=== PATIENT | male | born 1975 | race Hispanic/Latino ===

== ENCOUNTER 2024-06-23 07:29 | Emergency (ER) | payer OTHER ==
[~2024-06-23] VITALS: Ht 167.6 cm; Wt 78.0 kg
[2024-06-23 07:40] VITALS: PULSE 72; RESP 17; TEMP 97; O2SAT 100
[2024-06-23 08:09] LABS: BASOPHILS % 0.4 % (0.0-1.0); EOSINOPHILS # (AUTO) 0.1 (0.0-0.4); EOSINOPHILS % 0.9 % (0.0-6.0); HEMATOCRIT 47.3 % (38.2-49.6); LYMPHOCYTES # (AUTO) 2.5 (1.0-3.2); LYMPHOCYTES % 46.4 % (18.0-39.1); MEAN CORPUSCULAR HEMOGLOBIN 29.9 pg (28-32); MEAN CORPUSCULAR HGB CONC 33.8 g/dL (31-35); MEAN CORPUSCULAR VOLUME 88.4 fL (81-99); MONOCYTES # (AUTO) 0.4 (0.2-0.8); MONOCYTES % 7.1 % (4.4-11.3); NEUTROPHILS # (AUTO) 2.5 (2.1-6.9); PLATELET COUNT 188 x10e3/uL (140-360); RED BLOOD COUNT 5.35 x10e6/uL (4.3-5.7); RED CELL DISTRIBUTION WIDTH 12.9 % (11.7-14.4); WHITE BLOOD COUNT 5.48 x10e3/uL (4.8-10.8)
[2024-06-23] MEDS: SODIUM CHLORIDE 0.9% 1000ML 1,000 ML IV STA (08:29)
[2024-06-23] MEDS: ONDANSETRON HCL INJ 2MG/ML 2ML 2 MG/ML VIAL IV STA (08:29)
[2024-06-23] MEDS: KETOROLAC TROMETHAMINE 30 MG/ML VIAL IV STA (08:29)
[2024-06-23 08:38] LABS: INR 0.92; PROTHROMBIN TIME 12.8 seconds (11.9-14.5)
[2024-06-23 08:51] LABS: ALANINE AMINOTRANSFERASE 27 IU/L (0-55); ALBUMIN/GLOBULIN RATIO 1.1 (0.8-2.0); ALKALINE PHOSPHATASE 90 IU/L (40-150); ANION GAP 14.1 mmol/L (8-16); BILIRUBIN,TOTAL 0.5 mg/dL (0.2-1.2); BLOOD UREA NITROGEN 17 mg/dL (7-26); BUN/CREATININE RATIO 20 (6-25); CALCIUM 8.7 mg/dL (8.4-10.2); CARBON DIOXIDE 18 mmol/L (22-29); CHLORIDE 109 mmol/L (98-107); CREATINE KINASE 229 IU/L (30-200); CREATININE, SERUM 0.86 mg/dL (0.72-1.25); EST GLOMERULAR FILTRATION RATE 105 ML/MIN (>=60); GLUCOSE 104 mg/dL (74-118); MAGNESIUM 2.2 MG/DL (1.3-2.1); POTASSIUM 4.1 mmol/L (3.5-5.1); SODIUM 137 mmol/L (136-145); TOTAL PROTEIN 7.7 g/dL (6.5-8.1)
[2024-06-23 08:57] LABS: CLARITY,URINE CLEAR (CLEAR); COLOR,URINE YELLOW (YELLOW); GLUCOSE, URINE NEGATIVE (NEGATIVE); LEUKOCYTE ESTERASE ,URINE NEGATIVE (NEGATIVE); NITRITE,URINE NEGATIVE (NEGATIVE); PH,URINE 5.5 (5 - 7); PROTEIN,URINE DIPSTICK NEGATIVE (NEGATIVE)
[2024-06-23 08:58] LABS: BILIRUBIN,URINE NEGATIVE (NEGATIVE); KETONES,URINE NEGATIVE (NEGATIVE); URINE UROBILINOGEN 0.2 mg/dL (0.2 - 1)
[2024-06-23 09:20] LABS: BACTERIA,URINE FEW /HPF; EPITHELIAL CELLS,URINE FEW /LPF; RBC,URINE 0-5 /HPF (0-5)
[2024-06-23 09:29] LABS: TROPONIN I < 0.001 ng/mL (0-0.300)
[2024-06-23] MEDS ORDERED: METHOCARBAMOL750 MG PO (10:09)
== END 2024-06-23 10:43 | disposition home or self-care (01) ==
LOC: ER 07:36
DX: S39.012A Strain of muscle, fascia and tendon of lower back, initial encounter (principal); X50.1XXA Overexertion from prolonged static or awkward postures, initial encounter; Y92.89 Other specified places as the place of occurrence of the external cause; R94.31 Abnormal electrocardiogram [ECG] [EKG]
CPT/HCPCS: 36415; 71045; 74176; 80053; 81001; 82550; 83735; 84484; 85025; 85610; 85730; 87086; 93005; 99284; J1885; J2405; J2470; J7030